=== PATIENT | female | born 1970 | race Caucasian/White ===

== ENCOUNTER 2021-04-07 16:39 | Emergency (ER) | payer BC ==
[2021-04-07 17:00] VITALS: BP 146/81; PULSE 124
[2021-04-07] MEDS ORDERED: Aspirin 81 MG Tab.Chew PO ONE (17:31)
[2021-04-07] MEDS ORDERED: Sodium Chloride 0.9% 10 ML Syringe FLUSH PRN (17:31)
[2021-04-07] MEDS ORDERED: Acetaminophen/HYDROcodone 325-5 MG Tab PO ONE (19:42)
== END 2021-04-07 19:58 | disposition home or self-care (01) ==
LOC: JD.ED 16:39
DX: J10.1 Influenza due to other identified influenza virus with other respiratory manifestations (principal)
CPT/HCPCS: 36415; 71045; 80053; 83735; 84484; 85025; 85379; 85610; 87804; 93005; 99284; A9270; 93010